=== PATIENT | female | born 1945 | race Caucasian/White ===

== ENCOUNTER 2024-11-08 10:17 | Outpatient (AMB) | payer MEDICARE, SELFPAY | END 2024-11-08 10:49 | disposition home or self-care (01) | LOC: HO.HMGAL 10:17 | PROVIDERS: Visit Provider Registered Nurse Emergency | DX: J30.89 Other allergic rhinitis (principal) | CPT/HCPCS: 95117; 95165 ==

== ENCOUNTER 2024-11-14 13:35 | Outpatient (AMB) | payer MEDICARE, SELFPAY | END 2024-11-15 13:30 | disposition home or self-care (01) | LOC: HO.HMGAL 13:35 | PROVIDERS: Visit Provider Registered Nurse Emergency | DX: J30.89 Other allergic rhinitis (principal) | CPT/HCPCS: 95117; 95165 ==

== ENCOUNTER 2024-11-23 14:15 | Outpatient (AMB) | payer MEDICARE, SELFPAY | END 2024-11-23 14:36 | disposition home or self-care (01) | PROVIDERS: Visit Provider Registered Nurse Emergency | DX: J30.89 Other allergic rhinitis (principal) | CPT/HCPCS: 95117; 95165 ==

== ENCOUNTER 2024-11-28 11:08 | Outpatient (AMB) | payer MEDICARE, SELFPAY | END 2024-11-28 11:40 | disposition home or self-care (01) | LOC: HO.HMGAL 11:08 | PROVIDERS: Visit Provider Registered Nurse Emergency | DX: J30.89 Other allergic rhinitis (principal) | CPT/HCPCS: 95117; 95165 ==

== ENCOUNTER 2024-12-07 14:06 | Outpatient (AMB) | payer MEDICARE, SELFPAY | END 2024-12-07 14:15 | disposition home or self-care (01) | LOC: HO.HMGAL 14:06 | PROVIDERS: PCP Internal Medicine; Visit Provider Registered Nurse Emergency | DX: J30.89 Other allergic rhinitis (principal) | CPT/HCPCS: 95117; 95165 ==

== ENCOUNTER 2024-12-14 11:16 | Outpatient (AMB) | payer MEDICARE, SELFPAY | END 2024-12-14 11:26 | disposition home or self-care (01) | LOC: HO.HMGAL 11:16 | PROVIDERS: PCP Internal Medicine; Visit Provider Registered Nurse Emergency | DX: J30.89 Other allergic rhinitis (principal) | CPT/HCPCS: 95117; 95165 ==

== ENCOUNTER 2024-12-28 13:53 | Outpatient (AMB) | payer MEDICARE, SELFPAY | END 2024-12-28 13:53 | disposition home or self-care (01) | LOC: HO.HMGAL 13:53 | PROVIDERS: PCP Internal Medicine; Visit Provider Registered Nurse Emergency | DX: J30.89 Other allergic rhinitis (principal) | CPT/HCPCS: 95117; 95165 ==

== ENCOUNTER 2025-01-09 14:43 | Outpatient (AMB) | payer MEDICARE, SELFPAY | END 2025-01-09 14:44 | disposition home or self-care (01) | LOC: HO.HMGAL 14:43 | PROVIDERS: PCP Internal Medicine; Visit Provider Registered Nurse Emergency | DX: J30.89 Other allergic rhinitis (principal) | CPT/HCPCS: 95117; 95165 ==

== ENCOUNTER 2025-01-16 10:21 | Outpatient (AMB) | payer MEDICARE, SELFPAY | END 2025-01-16 10:22 | disposition home or self-care (01) | LOC: HO.HMGAL 10:21 | PROVIDERS: PCP Internal Medicine; Visit Provider Registered Nurse Emergency | DX: J30.89 Other allergic rhinitis (principal) | CPT/HCPCS: 95117; 95165 ==

== ENCOUNTER 2025-01-23 13:36 | Outpatient (AMB) | payer MEDICARE, SELFPAY | END 2025-01-23 13:37 | disposition home or self-care (01) | LOC: HO.HMGAL 13:36 | PROVIDERS: PCP Internal Medicine; Visit Provider Registered Nurse Emergency | DX: J30.89 Other allergic rhinitis (principal) | CPT/HCPCS: 95117; 95165 ==

== ENCOUNTER 2025-01-30 10:33 | Outpatient (AMB) | payer MEDICARE, SELFPAY ==
--- OUTSIDE RECORDS SUMMARY | 2025-01-30 12:21 | XMS_ITS | Data Portability ---
Author Organization [facility], [address] Address [address] [place] [address] Assessment No assessment recorded. Plan of Treatment Reminders Order Date Submit Date Provider Last Modified By Organization Details Last Modified Time Details Appointments None recorded. Lab urinalysis , dipstick 2023 [email or web address] [facility], [address] [place], [address], 18:41:45 culture, urine 2023 [place] [facility], [address] [place] [address], [place], [address], 10:05:58 Referral None recorded. Procedures None recorded. Surgeries None recorded. Imaging None recorded. Medication Orders Pyridium 100 mg tablet 2023 [facility]armacy #[id number], [address] [place], [address], 18:41:41 Macrobid 100 mg capsule 2023 024 [place] [facility]/Pharmacy #[id number], [address] [place], [address], 18:41:41 Patient TargetsNo targets recorded. Patient Instructions Encounter Date Encounter Id Patient Instructions Last Modified By Organization Details Last Modified Time 12/23/2023 [id number] Your symptoms an d urinalysis findings are consistent with a urine infection. We are sending a culture to the lab to confirm and determine if you actually have a UTI, which bacteria is causing it, and whether the medication prescribed is the best choice. We are starting you on antibiotics in the mean time. However there are times when we may need to change the antibiotic if the culture shows that the bacteria found is resistant to the antibiotic initially prescribed. You will get a call with your results and if the antibiotic needs to be changed we will send the appropriate new medication to your pharmacy. Otherwise take the full course of antibiotics and you can follow up with your PCP or urologist if you have one. [email or web address] Not available 12/23/2023 18:33:49 Reason for Referral None Reported. Results Created Date Observation Date Name Description Value Unit Range Abnormal Flag Note LastModifiedBy Organization Detail LastModifiedTime 12/23/1912/26/2023 URINE CULTU RE, ROUTI NE urine culture, routine FINAL REPORT Not Available [facility] ([facility]) [address] [facility], [place], [address], 12/26/2023 10:05:57 12/23/1912/26/2023 URINE CULTU RE, ROUTI NE result 1 COMMEN T Cultu re shows less than 10,00 0 colon y formi ng units of bacte teri per tiara liter of urine . This colon y count is not gener ally consi dered to be clini reno leei halle t. Not Available [facility] ([facility]) [address] [facility], [place], [address], 12/26/2023 10:05:57 12/23/1912/23/2023 urina lysis , dipst ick Unknown Analyte Normal = light yellow Not Available [facility] [address] [place], [address], 12/23/2023 18:05:16 12/23/1912/23/2023 urina lysis , dipst ick Unknown Analyte Light Yellow Not Available [facility] [address] [place], [address], 12/23/2023 18:05:16 12/23/1912/23/2023 urina lysis , dipst ick Unknown Analyte Clear Not Available [facility] [address] [place] [address], [phone], 12/23/2023 18:05:16 12/23/19 24 12/23/2023 urina lysis , dipst ick Unknown Analyte Normal = clear Not Available [facility] [address] [place] [address], [address], 12/23/2023 18:05:16 12/23/1912/23/2023 urina lysis , dipst ick Unknown Analyte Normal = negati ve Not Available [facility] [address] [place] [address], [address], 12/23/2023 18:05:16 12/23/1912/23/2023 urina lysis , dipst ick Unknown Analyte Negati ve Not Available [facility] [address] [place] [address], [phone], 12/23/2023 18:05:16 12/23/1912/23/2023 urina lysis , dipst ick Unknown Analyte Normal = Negati ve Not Available [facility] [address] [place] [address], [phone], 12/23/2023 18:05:16 12/23/1912/23/2023 urina lysis , dipst ick Unknown Analyte Negati ve Not Available [facility] [address] [place] [address], [phone], 12/23/2023 18:05:16 12/23/1912/23/2023 urina lysis , dipst ick Unknown Analyte Normal = Negati ve Not Available [facility] [address] [place] [address], [phone], 12/23/2023 18:05:16 12/23/19 24 12/23/2023 urina lysis , dipst ick Unknown Analyte Negati ve Not Available [facility] [address] [place] [address], [address], 12/23/2023 18:05:16 12/23/19 24 12/23/2023 urina lysis , dipst ick Unknown Analyte Normal = 1.010, 1.015, 1.020 Not Available [facility] [address] [place] [address], [address], 12/23/2023 18:05:16 12/23/1912/23/2023 urina lysis , dipst ick Unknown Analyte 1.010 Not Available [address], [address], 12/23/2023 18:05:16 12/23/1912/23/2023 urina lysis , dipst ick Unknown Analyte Normal = Negati ve Not Available [facility] [address] [place] [address], [address], 12/23/2023 18:05:16 12/23/19 24 12/23/2023 urina lysis , dipst ick Unknown Analyte Negati ve Not Available [facility] [address] [place] [address], [phone], 12/23/2023 18:05:16 12/23/19 24 12/23/2023 urina lysis , dipst ick Unknown Analyte Normal = 6.5, 7.0, 7.5, 8.0 Not Available [facility] [address] [place] [address], [phone], 12/23/2023 18:05:16 12/23/19 24 12/23/2023 urina lysis , dipst ick Unknown Analyte 7.5 Not Available e [facility] [address] [place] [address], [phone], 12/23/2023 18:05:16 12/23/1912/23/2023 urina lysis , dipst ick Unknown Analyte Normal = Negati ve Not Available [facility] [address] [place] [address], [address], 12/23/2023 18:05:16 12/23/1912/23/2023 urina lysis , dipst ick Unknown Analyte Negati ve Not Available [facility] [address] [place] [address], [address], 12/23/2023 18:05:16 12/23/1912/23/2023 urina lysis , dipst ick Unknown Analyte Normal = 0.2, 1.0 Not Available [facility] [address] [place] [address], [phone], 12/23/2023 18:05:16 12/23/1912/23/2023 urina lysis , dipst ick Unknown Analyte 0.2 E.U./d L Not Available [facility] [address] [place] [address], [phone], 12/23/2023 18:05:16 12/23/1912/23/2023 urina lysis , dipst ick Unknown Analyte Normal = Negati ve Not Available [facility] [address] [place] [address], [phone], 12/23/2023 18:05:16 12/23/1912/23/2023 urina lysis , dipst ick Unknown Analyte Negati ve Not Available [facility] [address] [place] [address], [address], 12/23/2023 18:05:16 12/23/1912/23/2023 urina lysis , dipst ick Unknown Analyte Normal = Negati ve Not Available [facility] [place], [address], 12/23/2023 18:05:16 12/23/1912/23/2023 urina lysis , dipst ick Unknown Analyte Trace Not Available [address] [address] [place], [address], 12/23/2023 18:05:16 Result Notes None recorded. Problems Name Problem SNOMED Code Status Onset Date Resolution Date Notes Provider Name and Address Organization Details Recorded Time Environmental allergy 589496692 Active Shwetha Amaya null, PA - [facility] 17:55:58 Hypertensive disorder 58239933 Active Shwetha argueta, PA - [facility] 17:56:18 Problem Notes None recorded. Procedures Surgical History Date Name Laterality Status Provider Name and Address Organization Details Recorded Time Carpal tunnel surgery completed Shwetha Amaya PA - [facility] 12/23/2023 18:01:23 procedure on wrist completed Shwetha Amaya PA - [facility] 12/23/2023 18:01:34 Imaging Results None recorded. Procedure Notes None recorded. Medical Equipment None Reported. Allergies Allergen ID Allergen Name Allergen Category Reaction Reaction Severity Criticality Documentation Date Start Date Code Code System Note Provider Name and Address Organization Details Recorded Time 514750 mold extract environme nt Not available Not available Not available 12/23/2023 34254 8 RxNorm Shwetha argueta, PA - [facility] 17:56:51 106047 tree and shrub pollen environme nt,medica tion Not available Not available Not available 12/23/2023 Shewtha argueta, PA - [facility] 17:56:57 613438 amoxicill in medicatio n Not available Not available Not available 12/23/2023 723 RxNorm Shwetha Amaya ellie, PA - [facility] 17:57:02 Medications Name Sig Start Date Stop Date Status Note LastModified by Organization Details LastModified Time atorvastatin 20 mg tablet TAKE 1 TABLET BY MOUTH EVERYDAY AT BEDTIME active Not Available Not Available No t Available trazodone 50 mg tablet TAKE 1 TABLET BY MOUTH EVERYDAY AT BEDTIME active Not Available Not Available No t Available Pyridium 100 mg tablet Take 1 tablet 3 times a day by oral route as needed for 3 days, for urinary discomfor t. 2023 active Not Available Not Available Not Avai lable Macrobid 100 mg capsule Take 1 capsule every 12 hours by oral route as directed for 7 days, for urinary infection . 2023 active Not Available Not Available Not Avai lable lisinopril 10 mg-hydrochloro thiazide 12.5 mg tablet TAKE 1 TABLET BY MOUTH EVERY DAY active Not Available Not Available No t Available albuterol sulfate HFA 90 mcg/actuation aerosol inhaler INHALE 2 PUFFS EVERY 4 HOURS NEEDED FOR WHEEZING/ SHORTNESS OF BREATH active Not Available Not Available No t Available Flovent Diskus 100 mcg/actuation powder for inhalation INHALE 2 PUFFS 2 TIMES A DAY -RINSE MOUTH AND THROAT AFTER USE active Not Available Not Available No t Available Vitals Date Recorded Body height Body mass index (BMI) Body weight Oxygen saturation Oxygen saturation in Arterial blood by Pulse oximetry Pain severity - 0-10 verbal numeric rating [Score] - Reported Heart rate Respiratory rate Body temperature Systolic And Diastolic Provider Name and Address Organization Details Last Updated DateTime 154.94 cm 29.1 kg/m2 00483.6 2 g 97 % 97 % 0 73 /min 19 /min 98.1 [degF] 131/79 mm[Hg] Shwetha Judge [facility] 17:54:49 Social History Question Answer Notes LastModified by PresentationTube ion Details LastModified Time Tobacco Smoking Status Never Smoker ANEESH Flores [facility] 12/23/2023 17:57:27 Have You Had A Flu Shot This Season? Yes Information not available 12/23/2023 If No, Would You Like A Flu Shot Today? No [email or web address] Information not available 12/23/2023 What Is Your Relationship Status? [email or web address] Information not available 12/23/2023 Have You Recently Traveled Abroad? No [email or web address] Information not available 12/23/2023 Sex: Unknown Functional Status Question Answer Note LastModified by Organizat ion Details LastModified Time How many times per week do you consume alcohol? Less than 1 time per week [email or web address] Information not available 12/23/2023 Do you use any illicit or recreational drugs? No [email or web address] Information not available 12/23/2023 Do you or have you ever used any other forms of tobacco or nicotine? No [email or web address] Information not available 12/23/2023 What is your level of alcohol consumption? Occasional [email or web address] Information not available 12/23/2023 Are you currently employed? No Information not available 12/23/2023 Mental Status None recorded. Family History Relationship Description Onset Age of this Age Resolved Age Notes LastModified by Organization Details LastModified Time Father No current problems or disability Not available 04/2023 17:56:29 Mother No current problems or disability [email or web address] Not available 04/2023 17:56:29 Medical History No medical history recorded. Gynecological History Statement/Question Response Is there any chance of ? No LMP N/A Obstetrics History GPAL:G 0 P 0 0 0 0 Immunizations Vaccine Type Date Status Note Provider Nam e and Address Organization Details Recorded Time zoster recombinant 9 completed Shwetha argueta, PA - [facility] 12/23/2023 17:55:16 zoster recombinant 9 completed Shwetha argueta, PA - [facility] 12/23/2023 17:55:16 Influenza, high-dose, quadrivalent, PF 0 completed Shwetha argueta, PA - [facility] 12/23/2023 17:55:16 COVID-19, mRNA, LNP-S, PF, 30 mcg/0.3 mL dose 1 completed Shwetha argueta, PA - [facility] 12/23/2023 17:55:16 COVID-19 vaccine, vector-nr, [id number], PF, 0.5 mL 1 completed Shwetha argueta PA - [facility] 12/23/2023 17:55:16 Pneumococcal conjugate PCV20, polysaccharide [id number] conjugate, adjuvant, PF 3 completed Shwethafilipe Amaya null, PA - [facility] 12/23/2023 17:55:16 COVID-19, mRNA, LNP-S, PF, 30 mcg/0.3 mL dose, nazario-sucrose 2 completed Shwetha Amaya null, PA - [facility] 12/23/2023 17:55:16 COVID-19, mRNA, LNP-S, bivalent, PF, 30 mcg/0.3 mL dose 3 completed Shwetha Amaya null, PA - [facility] 12/23/2023 17:55:16 COVID-19, mRNA, LNP-S, bivalent, PF, 30 mcg/0.3 mL dose 2 completed Shwetha Amaya null, PA - [facility] 12/23/2023 17:55:16 RSV, recombinant, protein subunit RSVpreF, adjuvant reconstituted, 0.5 mL, PF 3 completed Shwethafilipe Amaya null, PA - [facility] 12/23/2023 17:55:16 COVID-19, mRNA, LNP-S, PF, nazario-sucrose, 30 mcg/0.3 mL 4 completed Shwethafilipe Amaya null, PA - [facility] 12/23/2023 17:55:16 COVID-19, mRNA, LNP-S, PF, nazario-sucrose, 30 mcg/0.3 mL 3 completed Shwetha Amaya null, PA - [facility] 12/23/2023 17:55:16 Tdap 8 completed Shwetha Amaya null, PA - [facility] 12/23/2023 17:55:16 Influenza, high-dose, trivalent, PF 4 completed Shwetha Amaya null, PA - [facility] 12/23/2023 17:55:16 Influenza, split virus, trivalent, preservative 2 completed Shwethafilipe Amaya null, PA - [facility] 12/23/2023 17:55:16 Influenza, split virus, trivalent, preservative 1 completed Shwetha argueta, PA - [facility] 12/23/2023 17:55:16 Influenza, split virus, trivalent, preservative 3 completed Shwetha argueta, PA - [facility] 12/23/2023 17:55:16 Past Encounters Encounter ID Performer Location Encounter Start Date Encounter Closed Date Diagnosis/Indication Diagnosis SNOMED-CT Code Diagnosis ICD10 Code Diagnosis IMO Codes Diagnosis Note [id number] [address] [place] [address] [facility] [address] [place] [phone] 03/05/2015 15:22:14 03/05/2015 16:20:[id number] [place] [address] [facility] [address] [place] [phone] 12/28/2014 13:55:22 12/28/2014 14:09:18 [id number] ROBBIE OTERO [place] [facility] [address] [place] [phone] 12/23/2023 17:16:34 12/23/2023 18:45:11 Dysuria 75592190 R30.0 Pyuria 0982542 R82.81 Acute urin yogesh tract infection 873329236 N39.0 Health Concerns Section Related Observation LastModified by Organization Detai ls LastModified Time None Recorded Concern Status LastModified by Organization Details LastModified Time None Recorded Advance Directives Directive None Recorded Payers Insurance Date Sequence Insurance Name Policy Number Policy Arteaga Covered Member ID Arteaga Member ID Guarantor Name 12/23/2023 1 [place] Cayla Mcallister [id number] Cayla Mcallister 12/23/2023 2 [place] [id number] Cayla Mcallister [id number] Cayla Mcallister Notes Date Note Type Note Provider Name and Address Organization Details Recorded Time 12/23/2023 text/html 78y F presents with a 2 day hx of urinary burning, increased frequency, and urgency, Afebrile. No flank pain. No N/V/D/ or rash. She has been drinking a lot of water and cranberry juice but sxs persist. Hx of recurrent UTIs. Last one was years ago.. ROBBIE OTERO MD [address] [place], [address], [place] - [facility] 12/23/2023 18:44:41 OBGyn Episode No OBEpisode recorded.
== END 2025-01-30 10:36 | disposition home or self-care (01) ==
LOC: HO.HMGAL 10:33
PROVIDERS: PCP Internal Medicine; Visit Provider Registered Nurse Emergency
DX: J30.89 Other allergic rhinitis (principal)
CPT/HCPCS: 95117; 95165

== ENCOUNTER 2025-02-06 11:23 | Outpatient (AMB) | payer MEDICARE, SELFPAY | END 2025-02-06 11:24 | disposition home or self-care (01) | LOC: HO.HMGAL 11:23 | PROVIDERS: PCP Internal Medicine; Visit Provider Registered Nurse Emergency | DX: J30.89 Other allergic rhinitis (principal) | CPT/HCPCS: 95117; 95165 ==

== ENCOUNTER 2025-02-13 10:53 | Outpatient (AMB) | payer MEDICARE, SELFPAY | END 2025-02-13 10:54 | disposition home or self-care (01) | LOC: HO.HMGAL 10:53 | PROVIDERS: PCP Internal Medicine; Visit Provider Registered Nurse Emergency | DX: J30.89 Other allergic rhinitis (principal) | CPT/HCPCS: 95117; 95165 ==

== ENCOUNTER 2025-02-20 10:20 | Outpatient (AMB) | payer MEDICARE, SELFPAY | END 2025-02-20 10:21 | disposition home or self-care (01) | LOC: HO.HMGAL 10:20 | PROVIDERS: PCP Internal Medicine; Visit Provider Registered Nurse Emergency | DX: J30.89 Other allergic rhinitis (principal) | CPT/HCPCS: 95117; 95165 ==

== ENCOUNTER 2025-02-27 09:54 | Outpatient (AMB) | payer MEDICARE, SELFPAY | END 2025-02-27 09:54 | disposition home or self-care (01) | LOC: HO.HMGAL 09:54 | PROVIDERS: PCP Internal Medicine; Visit Provider Registered Nurse Emergency | DX: J30.89 Other allergic rhinitis (principal) | CPT/HCPCS: 95117; 95165 ==

== ENCOUNTER 2025-03-06 10:41 | Outpatient (AMB) | payer MEDICARE, SELFPAY | END 2025-03-06 10:41 | disposition home or self-care (01) | LOC: HO.HMGAL 10:41 | PROVIDERS: PCP Internal Medicine; Visit Provider Registered Nurse Emergency | DX: J30.89 Other allergic rhinitis (principal) | CPT/HCPCS: 95117; 95165 ==